=== PATIENT | male | born 1995 | race Hispanic/Latino ===

== ENCOUNTER 2018-11-25 13:55 | Emergency (ER) | payer OTHER ==
[2018-11-25] MEDS ORDERED: IBUPROFEN 600 MG TABLET ONE (14:48)
== END 2018-11-25 16:04 | disposition home or self-care (01) ==
LOC: EDH 13:55
DX: J02.9 Acute pharyngitis, unspecified (principal); R10.33 Periumbilical pain; Z72.0 Tobacco use
CPT/HCPCS: 87880